=== PATIENT | male | born 1965 | race Caucasian/White ===

== ENCOUNTER → 2017-11-14 | Outpatient (CLI) | payer OTHER | END | disposition home or self-care (01) | LOC: CDC 09:35 | DX: Z01.810 Encounter for preprocedural cardiovascular examination (principal); M51.26 Other intervertebral disc displacement, lumbar region; I44.7 Left bundle-branch block, unspecified; R94.31 Abnormal electrocardiogram [ECG] [EKG] | CPT/HCPCS: 93000 ==